=== PATIENT | female | born 1995 | race Caucasian/White ===

== ENCOUNTER 2024-02-06 08:27 | Emergency (ER) | payer OTHER ==
[2024-02-06] MEDS ORDERED: NA CHLORIDE 0.9% 1,000 ML ONE (08:59)
--- NOTE | 2024-02-06 09:43 | RAD REPORT ---
EXAM DESCRIPTION: US - Transvaginal OB - 02/06/2024 9:29 am CLINICAL HISTORY: VAGINAL BLEEDING COMPARISON: No comparisons FINDINGS: A normal size uterus is seen measuring 5.9 x 3.8 x 2.7 cm. Endometrium is thickened to 8 m m without IUP seen. Left ovary is normal in size, shape and echotexture with normal blood flow. The right ovary is obscur ed by bowel gas. No pelvic ascites. IMPRESSION: Mildly thickened endometrial stripe is seen without evidence of IUP. Right ovary was obscured by bowel gas. If the patient has a positive HCG level, this would be considered a of unknown location. F ollow-up serial HCG levels and pelvic sonography in 7-10 days would be recommended.
[2024-02-06 09:52] LABS: Absolute Basophils 0.1 K/uL (0-0.5); Absolute Eosinophils 0.1 K/uL (0-0.5); Absolute Lymphocytes (CBC) 1.8 K/uL (0.7-4.9); Absolute Monocytes 0.5 K/uL (0.1-1.3); Absolute Neutrophil 6.9 K/uL (1.8-8.0); Basophils % 0.7 % (0-1.3); Eosinophils % 1.5 % (0-4.4); Hematocrit 43.1 % (36.0-45.0); Hemoglobin 14.7 g/dL (12.0-15.0); Lymphocytes % 19.2 % (15.3-44.8); MCH 31.2 pg (27.0-35.0); MCHC 34.2 g/dL (32.0-36.0); MCV 91.3 fL (80-100); MPV 8.6 fL (7.6-11.3); Monocytes % 4.9 % (3.3-12.3); Neutrophils % 73.7 % (41.7-73.7); Platelets 241 thou/uL (152-406); RBC Red Blood Cell Count 4.72 M/uL (3.86-4.86); Red Cell Distribution Width 12.2 % (12.1-15.2)
[2024-02-06 10:11] LABS: Anion Gap 10.2 mEq/L (5.0-15.0); Potassium 3.2 mEq/L (3.5-5.1)
[2024-02-06] MEDS ORDERED: POTASSIUM CL SA 10 MEQ TAB PO ONE (10:48)
--- NOTE | 2024-02-06 10:50 | EDPHYS ---
Physician Documentation [facility] Name: Nina Hilliard Age: 28 yrs Sex: Female : 1995 Arrival Date: 02/06/2024 Time: 08:27 Bed 20 Private MD: ED Physician Ramón Bruce HPI: 02/05 08:40 This 28 yrs old Female presents to ER via Unassigned with complaints of Vaginal cp Bleeding, + Preg <12wks. 08:40 The patient presents to the emergency department with vaginal bleeding, that is cp moderate. The estimated gestational age is 5 weeks. course: care: none, Ultrasound: the patient has not had an ultrasound. 08:40 Associated signs and symptoms: Pertinent positives: vaginal bleeding, Pertinent cp negatives: abdominal pain, fever, vomiting. 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 - Infectious Disease History:: Denies. - Social history:: Smoking status: Patient denies any tobacco usage or history of. ROS: 08:45 Constitutional: Negative for body aches, chills, fever, poor PO intake, cp 08:45 Eyes: Negative for injury, pain, redness, and discharge, cp 08:45 Cardiovascular: Negative for chest pain, palpitations, 08:45 Respiratory: Negative for cough, shortness of breath, wheezing, 08:45 Abdomen/GI: Negative for abdominal pain, nausea, vomiting, and diarrhea, anorexia, 08:45 Back: Negative for pain at rest, pain with movement, 08:45 : Positive for vaginal bleeding, Negative for urinary symptoms, 08:45 Neuro: Negative for dizziness, headache, weakness, 08:45 All other systems are negative, Exam: 08:50 Constitutional: The patient appears in no acute distress, alert, awake, non-toxic, well cp developed, well nourished, 08:50 Head/Face: Normocephalic, atraumatic. cp 08:50 Eyes: Periorbital structures: appear normal, Conjunctiva: normal, no exudate, no injection, Sclera: no appreciated abnormality, Lids and lashes: appear normal, bilaterally, 08:50 ENT: External ear(s): are unremarkable, Nose: is normal, Mouth: Lips: moist, Oral mucosa: pink and intact, moist, Posterior pharynx: Airway: no evidence of obstruction, patent, 08:50 Chest/axilla: Inspection: normal, 08:50 Cardiovascular: Rate: tachycardic, Rhythm: regular, Edema: is not appreciated, JVD: is noted bilaterally, 08:50 Respiratory: the patient does not display signs of respiratory distress, Respirations: normal, no use of accessory muscles, no retractions, labored breathing, is not present, Breath sounds: are clear throughout, no decreased breath sounds, no stridor, no wheezing, 08:50 Abdomen/GI: Inspection: abdomen appears normal, Bowel sounds: active, all quadrants, Palpation: abdomen is soft and non-tender, in all quadrants, 08:50 Back: pain, is absent, ROM is normal, Vital Signs: 08:38 BP 114 / 88; Pulse 100; Resp 17; Temp 97.6; Pulse Ox 100% on R/A; Weight 52.62 kg; ll1 Height 5 ft. 1 in. ; Pain 1/10; 10:00 BP 112 / 78; Pulse 91; Resp 18; Temp 98; Pulse Ox 99% on R/A; ph 08:38 Body Mass Index 21.92 (52.62 kg, 154.94 cm) ll1 08:38 Pain Scale: Adult ll1 MDM: 08:37 Patient medically screened. cp 09:00 Differential diagnosis: STD, threatened Ab, inevitable Ab, complete Ab, retained Ab, cp ectopic . 10:50 Data reviewed: vital signs, nurses notes, lab test result(s), radiologic studies, cp ultrasound, and as a result, I will discharge patient. 10:50 Counseling: I had a detailed discussion with the patient and/or guardian regarding the cp historical points, exam findings, and any diagnostic results supporting the discharge/admit diagnosis, lab results, radiology results, the need for outpatient follow up, an OB/Gyne specialist, to return to the emergency department if symptoms worsen or persist or if there are any questions or concerns that arise at home. 02/05 08:39 Order name: Abo/rh Typing; Complete Time: 10:27 02/05 10:37 Interpretation: Reviewed. 02/05 08:39 Order name: Basic Metabolic Panel; Complete Time: 10:27 cp 02/05 10:27 Interpretation: Normal except: K 3.2; GLUC 107. 02/05 08:39 Order name: CBC with Diff; Complete Time: 10:06 cp 02/05 10:06 Interpretation: Reviewed. 02/05 08:39 Order name: Test, Urine 02/05 08:39 Order name: Quantitative Hcg; Complete Time: 10:27 02/05 10:28 Interpretation: HCGQ 35; Reviewed. 02/05 08:39 Order name: Urinalysis w/ reflexes 02/05 08:39 Order name: US Transvaginal Ob; Complete Time: 09:45 cp 02/05 09:46 Interpretation: Report reviewed. 02/05 08:39 Order name: IV Saline Lock; Complete Time: 09:45 cp 02/05 08:39 Order name: Labs collected and sent; Complete Time: 09:45 02/05 08:39 Order name: NPO; Complete Time: 09:45 cp Administered Medications: 09:45 Drug: NS 0.9% IV 1000 ml IV at 1 bolus Per protocol; 1000 mL bolus Route: IV; Rate: 1 ph bolus; Site: right antecubital; 10:51 Follow up: Response: No adverse reaction; IV Status: Completed infusion mb9 10:51 Drug: Potassium PO Effervescent Tablet 50 mEq PO once; dissolve in 4 ounces of water or mb9 juice Route: PO; Disposition: 16:13 Co-signature as Attending Physician, Ramón Bruce MD I reviewed the patient's care rn provided by the Advanced Practice Provider and agree with the diagnosis and treatment plan. Disposition Summary: 02/06/24 10:50 Discharge Ordered Notes: Location: Home cp Problem: new cp Symptoms: have improved cp Condition: Stable cp Diagnosis - Threatened cp Followup: cp - With: Private Physician - When: 48 Hours - Reason: Repeat Beta-HCG (48 Hours) Discharge Instructions: - Discharge Summary Sheet cp - Care cp - Threatened Miscarriage cp - Vaginal Bleeding During , First Trimester cp - First Trimester of cp Forms: - Medication Reconciliation Form cp - Antibiotic Education cp - Prescription Opioid Use cp - Patient Portal Instructions cp - Leadership Thank You Letter cp Prescriptions: - 114-iron a-g-folate 1 20 mg iron- 1 mg Oral tablet - take 1 tablet ORAL route daily; 30 tablet; Refills: 0, Product Selection cp Permitted Signatures: Dispatcher [employer] EDMS Ramón Bruce MD MD rn Hall, Patricia RN RN ph Carie, Dick, PENG PA cp Anish Mccormack RN RN ll1 Caterina Oleary RN RN mb9 Corrections: (The following items were deleted from the chart) 08:40 08:40 ABO/RH TYPING+BB.LAB.BRZ ordered. EDMS EDMS 08:40 08:40 BASIC METABOLIC PANEL+C.LAB.BRZ ordered. EDMS EDMS 08:40 08:40 CBC+H.LAB.BRZ ordered. EDMS EDMS 08:40 08:40 Test, Urine+UC.LAB.BRZ ordered. EDMS EDMS 08:40 08:40 QUANTITATIVE HCG+C.LAB.BRZ ordered. EDMS EDMS 08:40 08:40 Urinalysis+U.LAB.BRZ ordered. EDMS EDMS 08:40 08:40 Transvaginal Ob+US.RAD.BRZ ordered. EDMS EDMS
--- NOTE | 2024-02-06 10:50 | ER ---
Nurse's Notes [facility] Name: Nina Hilliard Age: 28 yrs Sex: Female : 1995 Arrival Date: 02/06/2024 Time: 08:27 Bed 20 Private MD: Diagnosis: Threatened Presentation: 02/05 08:38 Chief complaint: Patient states: Vaginal bleeding began yesterday "like a period", no ll1 clots. Slight cramping. G1, P0. States 5 weeks . Coronavirus screen: Client denies travel out of the [place] in the last 14 days. At this time, the client does not indicate any symptoms associated with coronavirus-19. Ebola Screen: Patient denies travel to an Ebola-affected area in the 21 days before illness onset. Initial Sepsis Screen: Does the patient meet any 2 criteria? No. Patient's initial sepsis screen is negative. Does the patient have a suspected source of infection? No. Patient's initial sepsis screen is negative. Risk Assessment: Do you want to hurt yourself or someone else? Patient reports no desire to harm self or others. Onset of symptoms was February 05, 2024. 08:38 Method Of Arrival: Ambulatory ll1 08:38 Acuity: YAMILE 3 ll1 Triage Assessment: 08:40 General: Appears uncomfortable, Behavior is cooperative, appropriate for age, crying. ll1 Pain: Complains of pain in pelvis Pain currently is 1 out of 10 on a pain scale. Quality of pain is described as aching, crampy, Pain began 1 day ago. : Reports cramping, vaginal bleeding that is moderate flow, about 5 weeks G1, P0. 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 - Infectious Disease History:: Denies. - Social history:: Smoking status: Patient denies any tobacco usage or history of. Screenin:46 [facility] ED Fall Risk Assessment (Adult) History of falling in the last 3 months, ph including since admission No falls in past 3 months (0 pts) Confusion or Disorientation No (0 pts) Intoxicated or Sedated No (0 pts) Impaired Gait No (0 pts) Mobility Assist Device Used No (0 pt) Altered Elimination No (0 pt) Score/Fall Risk Level 0 - 2 = Low Risk Oriented to surroundings, Maintained a safe environment, Hourly rounding (assess needs \\T\\ fall precautionary measures) done. Abuse screen: Denies threats or abuse. Denies injuries from another. Nutritional screening: No deficits noted. Tuberculosis screening: No symptoms or risk factors identified. Assessment: 10:56 Reassessment: No changes from previously documented assessment. Patient and/or family mb9 updated on plan of care and expected duration. Pain level reassessed. Patient is alert, oriented x 3, equal unlabored respirations, skin warm/dry/pink. Vital Signs: 08:38 BP 114 / 88; Pulse 100; Resp 17; Temp 97.6; Pulse Ox 100% on R/A; Weight 52.62 kg; ll1 Height 5 ft. 1 in. ; Pain 1/10; 10:00 BP 112 / 78; Pulse 91; Resp 18; Temp 98; Pulse Ox 99% on R/A; ph 08:38 Body Mass Index 21.92 (52.62 kg, 154.94 cm) ll1 08:38 Pain Scale: Adult ll1 ED Course: 08:31 Patient arrived in ED. im 08:33 Arm band placed on Patient placed in an exam room, on a stretcher. ll1 08:34 Helen Handley, RAMU is Primary Nurse. ph 08:37 Dick Darnell PA is PHCP. cp 08:37 Ramón Bruce MD is Attending Physician. cp 08:40 Triage completed. ll1 09:28 US Transvaginal Ob In Process Unspecified. EDMS 09:45 Abo/rh Typing Sent. ph 09:45 Basic Metabolic Panel Sent. ph 09:45 CBC with Diff Sent. ph 09:45 Quantitative Hcg Sent. ph 09:45 Initial lab(s) drawn, by oh, sent to lab. Inserted saline lock: 20 gauge in right ph antecubital area, using aseptic technique. Blood collected. 09:47 Patient has correct armband on for positive identification. Placed in gown. Bed in low ph position. Call light in reach. Side rails up X 1. 10:47 Urine collected: clean catch specimen, clear, Amount Voided: 150mL. ll1 10:56 No provider procedures requiring assistance completed. IV discontinued, intact, mb9 bleeding controlled, No redness/swelling at site. Pressure dressing applied. Administered Medications: 09:45 Drug: NS 0.9% IV 1000 ml IV at 1 bolus Per protocol; 1000 mL bolus Route: IV; Rate: 1 ph bolus; Site: right antecubital; 10:51 Follow up: Response: No adverse reaction; IV Status: Completed infusion mb9 10:51 Drug: Potassium PO Effervescent Tablet 50 mEq PO once; dissolve in 4 ounces of water or mb9 juice Route: PO; Medication: 09:46 VIS not applicable for this client. ph Outcome: 10:50 Discharge ordered by MD. an 10:56 Discharged to home ambulatory, mb9 10:56 Condition: stable 10:56 Discharge instructions given to patient, Instructed on discharge instructions, follow up and referral plans. Demonstrated understanding of instructions, follow-up care, medications, Prescriptions given X 1, 10:56 Patient left the ED. mb9 Signatures: Dispatcher [employer] EDHelen Watson RN RN Dick Akers PA PA cp Lewis, Lynsay, RN RN ll1 Caterina Oleary RN RN mb9 Lise Mendoza
[2024-02-06 11:11] LABS: Specific Gravity 1.002 (1.005-1.030); Specific Gravity < 1.005 (1.005-1.030); Sqamous Epithelial <5 /HPF (None Seen); Urine Bacteria None Seen /HPF (<20); Urine Bilirubin NEGATIVE (Negative); Urine Blood 3+ (OVER) (Negative); Urine Clarity Turbid (Clear); Urine Color Colorless (Yellow); Urine Crystals Unidentified Few /HPF (None Seen); Urine Culture Reflex Order NOT NEEDED; Urine Glucose NEGATIVE (Negative); Urine Ketones 1+ (Negative); Urine Microscopic Reflex YN ORDER UMIC; Urine Nitrite NEGATIVE (Negative); Urine Protein NEGATIVE (Negative); Urine RBC <5 /HPF (None Seen); Urine Urobilinogen Normal (Normal); Urine WBC <5 /HPF (<5); Urine pH 5.5 (5.0-7.0)
[2024-02-06 11:52] VITALS: BP 114/88; TEMP 97.6; O2SAT 100
== END 2024-02-06 10:56 | disposition home or self-care (01) ==
LOC: ER 08:27
DX: O20.0 Threatened abortion (principal)
CPT/HCPCS: 85025; 81001; 80048; 36415; 86900; 81025; 86901; 84702; 76817; J7030; 96360; 99284

== ENCOUNTER 2024-02-08 09:53 | Emergency (ER) | payer OTHER ==
[2024-02-08 11:55] VITALS: BP 115/80; TEMP 98.9; O2SAT 100
--- NOTE | 2024-02-08 15:06 | EDPHYS ---
Physician Documentation [facility] Name: Nina Hilliard Age: 28 yrs Sex: Female : 1995 Arrival Date: 02/08/2024 Time: 09:53 Bed 11 Private MD: ED Physician Reinaldo Resendiz HPI: 02/07 10:25 This 28 yrs old Female presents to ER via Ambulatory with complaints of Repeat Lab Work.sp3 10:25 28-year-old female with history of migraines currently G1, P0 with LMP 12/29 presents sp3 for repeat beta-hCG after a visit 2 days ago for threatened AB with an hCG of 35 seen here at this facility. Patient has had mild spotting since then and reports no pain, syncope, near syncope, back pain, or any other signs or symptoms on ROS at this time.. 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 - Infectious Disease History:: Denies. - Social history:: Smoking status: Patient denies any tobacco usage or history of. ROS: 10:26 Constitutional: Negative for fever, chills, and weight loss, Eyes: Negative for injury, sp3 pain, redness, and discharge, ENT: Negative for injury, pain, and discharge, Neck: Negative for injury, pain, and swelling, Cardiovascular: Negative for chest pain, palpitations, and edema, Respiratory: Negative for shortness of breath, cough, wheezing, and pleuritic chest pain, Abdomen/GI: Negative for abdominal pain, nausea, vomiting, diarrhea, and constipation, Back: Negative for injury and pain, MS/Extremity: Negative for injury and deformity, Skin: Negative for injury, rash, and discoloration, Neuro: Negative for headache, weakness, numbness, tingling, and seizure, Allergy/Immunology: Negative for hives, rash, and allergies, Endocrine: Negative for neck swelling, polydipsia, polyuria, polyphagia, and marked weight changes, Hematologic/Lymphatic: Negative for swollen nodes, abnormal bleeding, and unusual bruising, 10:26 All other systems are negative, Exam: 10:26 Constitutional: This is a well developed, well nourished patient who is awake, alert, sp3 and in no acute distress. Head/Face: Normocephalic, atraumatic. Chest/axilla: Normal chest wall appearance and motion. Nontender with no deformity. No lesions are appreciated. Cardiovascular: Regular rate and rhythm with a normal S1 and S2. No gallops, murmurs, or rubs. Normal PMI, no JVD. No pulse deficits. Respiratory: Lungs have equal breath sounds bilaterally, clear to auscultation and percussion. No rales, rhonchi or wheezes noted. No increased work of breathing, no retractions or nasal flaring. Abdomen/GI: Soft, non-tender, with normal bowel sounds. No distension or tympany. No guarding or rebound. No evidence of tenderness throughout. Back: No spinal tenderness. No costovertebral tenderness. Full range of motion. Skin: Warm, dry with normal turgor. Normal color with no rashes, no lesions, and no evidence of cellulitis. Vital Signs: 10:12 BP 115 / 80; Pulse 88; Resp 18; Temp 98.9; Pulse Ox 100% ; Weight 52.62 kg; Height 5 ss ft. 1 in. ; Pain 0/10; 10:12 Body Mass Index 21.92 (52.62 kg, 154.94 cm) ss 10:12 Pain Scale: Adult ss MDM: 10:04 Patient medically screened. sp3 10:27 Data reviewed: vital signs, nurses notes, lab test result(s). ED course: 28-year-old sp3 female with threatened AB here for repeat blood work after 48 hours for beta-hCG. Lab work is pending. Differential diagnosis includes versus continued threatened AB versus miscarriage in process. Patient's blood type is O+. Disposition pending workup and patient course with probable discharge and [facility] follow-up. Vital signs are normal and patient is in no acute distress.. 11:21 ED course: hCG at 19. Patient has had a miscarriage and I will inform her as well as sp3 ensure that she follows up with gynecology.. 02/07 10:04 Order name: HCG-Quantitative; Complete Time: 11:20 sp3 Administered Medications: No medications were administered Disposition Summary: 02/08/24 11:21 Discharge Ordered Notes: Location: Home sp3 Condition: Stable sp3 Diagnosis - Complete or unspecified spontaneous without complication sp3 Followup: sp3 - With: Private Physician - When: Upon discharge from the Emergency Department - Reason: Continuance of care Discharge Instructions: - Discharge Summary Sheet sp3 - Miscarriage sp3 Forms: - Medication Reconciliation Form sp3 - Antibiotic Education sp3 - Prescription Opioid Use sp3 - Patient Portal Instructions sp3 - Leadership Thank You Letter sp3 Signatures: Dispatcher [employer] Aleksandra Crow RN RN ss Reinaldo Resendiz MD MD sp3 Corrections: (The following items were deleted from the chart) 10:04 10:04 QUANTITATIVE HCG+C.LAB.BRZ ordered. KURTIS HULL
--- NOTE | 2024-02-08 15:06 | ER ---
Nurse's Notes [facility] Name: Nina Hilliard Age: 28 yrs Sex: Female : 1995 Arrival Date: 02/08/2024 Time: 09:53 Bed 11 Private MD: Diagnosis: Complete or unspecified spontaneous without complication Presentation: 02/07 10:12 Chief complaint: Patient states: Pt was seen in this ER on Tuesday with vaginal bleeding ss and cramping, possible miscarriage. Was instructed to return today for repeat Hcg. , LMP 12/30/2023. Coronavirus screen: Vaccine status: Patient reports being unvaccinated. Client denies travel out of the [place] in the last 14 days. Ebola Screen: Patient negative for fever greater than or equal to 101.5 degrees Fahrenheit, and additional compatible Ebola Virus Disease symptoms Patient denies exposure to infectious person. Patient denies travel to an Ebola-affected area in the 21 days before illness onset. Initial Sepsis Screen: Does the patient meet any 2 criteria? No. Patient's initial sepsis screen is negative. Does the patient have a suspected source of infection? No. Patient's initial sepsis screen is negative. Risk Assessment: Do you want to hurt yourself or someone else? Patient reports no desire to harm self or others. Onset of symptoms was February 05, 2024. 10:12 Method Of Arrival: Ambulatory ss 10:12 Acuity: YAMILE 4 ss Triage Assessment: 10:15 General: Appears in no apparent distress. comfortable, Behavior is calm, cooperative. ss Pain: Denies pain. : Reports vaginal bleeding that is spotty, since Tuesday-diagnosed with possible miscarriage. 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 - Infectious Disease History:: Denies. - Social history:: Smoking status: Patient denies any tobacco usage or history of. Screenin:25 [facility] ED Fall Risk Assessment (Adult) History of falling in the last 3 months, ss including since admission No falls in past 3 months (0 pts) Confusion or Disorientation No (0 pts) Intoxicated or Sedated No (0 pts) Impaired Gait No (0 pts) Mobility Assist Device Used No (0 pt) Altered Elimination No (0 pt) Score/Fall Risk Level 0 - 2 = Low Risk Oriented to surroundings, Maintained a safe environment. Abuse screen: Denies threats or abuse. Denies injuries from another. Nutritional screening: No deficits noted. Tuberculosis screening: Never had TB. Assessment: 11:25 General: Appears in no apparent distress. comfortable, Behavior is calm, cooperative. ss Neuro: Level of Consciousness is awake, alert, obeys commands, Oriented to person, place, time, situation. Respiratory: Airway is patent Respiratory effort is even, unlabored, Respiratory pattern is regular, symmetrical. Derm: Skin is pink, warm \T\ dry. normal. Vital Signs: 10:12 BP 115 / 80; Pulse 88; Resp 18; Temp 98.9; Pulse Ox 100% ; Weight 52.62 kg; Height 5 ss ft. 1 in. ; Pain 0/10; 10:12 Body Mass Index 21.92 (52.62 kg, 154.94 cm) ss 10:12 Pain Scale: Adult ss ED Course: 09:55 Patient arrived in ED. rg4 09:59 Reinaldo Resendiz MD is Attending Physician. sp3 10:13 Triage completed. ss 10:15 Arm band placed on right wrist. Patient placed in an exam room. ss 11:25 Patient has correct armband on for positive identification. ss 11:26 Aleksandra Alfonso RN is Primary Nurse. ss 11:29 No provider procedures requiring assistance completed. Patient did not have IV access ss during this emergency room visit. Administered Medications: No medications were administered Medication: 11:25 VIS not applicable for this client. ss Outcome: 11:21 Discharge ordered by . sp3 11:29 Discharged to home ambulatory, with family, ss 11:29 Condition: good 11:29 Discharge instructions given to patient, Instructed on discharge instructions, follow up and referral plans. Demonstrated understanding of instructions, follow-up care, 11:29 Patient left the ED. ss Signatures: Aleksandra Alfonso RN RN Aga Macrh rg4 Reinaldo Resendiz MD MD sp3 Corrections: (The following items were deleted from the chart) 10:17 10:12 Chief complaint: Patient states: Pt was seen in this ER on Tuesday with vaginal ss bleeding and cramping, possible miscarriage. Was instructed to return today for repeat HcG ss
== END 2024-02-08 11:29 | disposition home or self-care (01) ==
LOC: ER 09:53
DX: O03.9 Complete or unspecified spontaneous abortion without complication (principal)
CPT/HCPCS: 36415; 84702

== ENCOUNTER 2024-10-28 00:17 | Emergency (ER) | payer OTHER ==
[2024-10-28 01:35] LABS: Absolute Lymphocytes (CBC) 0.9 K/uL (0.7-4.9); Absolute Monocytes 0.4 K/uL (0.1-1.3); Absolute Neutrophil 14.6 K/uL (1.8-8.0); Basophils % 0.1 % (0-1.3); Eosinophils % 0.1 % (0-4.4); Hematocrit 36.2 % (36.0-45.0); Hemoglobin 12.6 g/dL (12.0-15.0); Lymphocytes % 5.9 % (15.3-44.8); MCH 31.2 pg (27.0-35.0); MCHC 34.7 g/dL (32.0-36.0); MCV 89.9 fL (80-100); MPV 9.4 fL (7.6-11.3); Monocytes % 2.7 % (3.3-12.3); Neutrophils % 91.2 % (41.7-73.7); Platelets 203 thou/uL (152-406); RBC Red Blood Cell Count 4.03 M/uL (3.86-4.86); Red Cell Distribution Width 12.8 % (12.1-15.2)
[2024-10-28 01:41] LABS: Anion Gap 11.6 mEq/L (5.0-15.0); Potassium 3.6 mEq/L (3.5-5.1)
[2024-10-28 03:34] LABS: Band Neutrophils 6 % (0-1); Differential Total Cells Count 100; Lymphocytes 6 % (15-42); Monocytes 0 % (0-10); Segmented Neutrophils 88 % (40-80)
[2024-10-28 03:35] LABS: Blood Morphology Comment NOT SEEN (NOT SEEN); Platelet Estimate ADEQ
[2024-10-28] MEDS ORDERED: NA CHLORIDE 0.9% 1,000 ML ONE (03:37)
[2024-10-28 04:01] LABS: Specific Gravity 1.025 (1.005-1.030)
[2024-10-28 04:02] LABS: Specific Gravity 1.025 (1.005-1.030); Sqamous Epithelial None Seen /HPF (None Seen); Urine Bacteria <20 /HPF (<20); Urine Bilirubin NEGATIVE (Negative); Urine Blood 3+ (OVER) (Negative); Urine Clarity Extremely Turbid (Clear); Urine Color Brown (Yellow); Urine Culture Reflex Order REFLEXED; Urine Glucose NEGATIVE (Negative); Urine Ketones NEGATIVE (Negative); Urine Microscopic Reflex YN ORDER UMIC; Urine Mucus Slight /HPF (None Seen); Urine Nitrite NEGATIVE (Negative); Urine Protein 1+ (Negative); Urine RBC >50 /HPF (None Seen); Urine Urobilinogen Normal (Normal); Urine WBC >50 /HPF (<5); Urine pH 5.5 (5.0-7.0)
[2024-10-28] MEDS ORDERED: ONDANSETRON 4 MG/2 ML VIAL ONE (04:13)
[2024-10-28] MEDS ORDERED: MORPHINE 4 MG/ML SYR ONE (04:14)
--- NOTE | 2024-10-28 04:37 | RAD REPORT ---
EXAM DESCRIPTION: Transvaginal OB CLINICAL HISTORY: 29 years Female, VAGINAL BLEEDING COMPARISON: None. TECHNIQUE: Transvaginal images of the pelvis obtained FINDINGS: Uterus: Anteverted, measuring 9.9 x 4.1 x 4.5 cm. No focal myometrial mass identified. Gestational sac/Yolk sac/ pole: IUP is not identified. Endometrium is thickened and diffusely he terogeneous with areas of complex fluid. Findings are suspicious for blood products. No central internal vascularity on color Doppler images. Cannot exclude normally shaped gestational sac superior ly, though this could also be due to blood products. Right ovary: Not visualized. Left ovary: Measures 2.4 x 2.2 x 1.3 cm. No suspicious sonographic abnormality. Small corpus luteal c yst. Adnexa: No additional abnormality. Free fluid: None identified. IMPRESSION: No intrauterine is definitively identified. Endometrium is thickened and diffusely heteroge neous, suspicious for blood products. Cannot exclude an abnormally shaped gestational sac, though this could also be due to hematoma. No extra ovarian adnexal mass identified to suggest ectopic pregn courtney. Recommend continued close clinical follow-up with repeat ultrasound as indicated. Electronically signed by: Leatha Casillas MD 10/28/2024 04:32 AM CDT Due to temporary technical issues with the PACS/[employer] reporting system, reports are being sign ed by the in-house radiologist without review as a courtesy to ensure prompt reporting the interpreting rad iologist is fully responsible for the content of the report. Transcribed Date/Time: 10/28/2024 4:37 AM
[2024-10-28] MEDS ORDERED: NA CHLORIDE 0.9% 100 ML ONE (04:54)
[2024-10-28] MEDS ORDERED: PIPERACIL/TAZO 3.375 GM VIAL IV ONE (04:54)
--- NOTE | 2024-10-28 05:23 | ER ---
Nurse's Notes [facility] Name: Nina Hilliard Age: 29 yrs Sex: Female : 1995 Arrival Date: 10/28/2024 Time: 00:17 Bed 13 Private MD: Diagnosis: Incomplete spontaneous Presentation: 10/28 00:41 Chief complaint: Patient states: 9 WEEKS VAGINAL BLEEDING SINCE TUESDAY. ha1 00:41 Coronavirus screen: Client denies travel out of the [place] in the last 14 days. Ebola ha1 Screen: No symptoms or risks identified at this time. Initial Sepsis Screen: Does the patient meet any 2 criteria? No. Patient's initial sepsis screen is negative. Does the patient have a suspected source of infection? No. Patient's initial sepsis screen is negative. Risk Assessment: Do you want to hurt yourself or someone else? Patient reports no desire to harm self or others. Onset of symptoms was October 28, 2024. 00:41 Method Of Arrival: Wheelchair ha1 00:41 Acuity: YAMILE 3 ha1 Historical: - Allergies: 00:41 Azithromycin; ha1 00:41 shrimp; ha1 00:41 Wheat/glutens; ha1 - PMHx: 00:41 Migraine; ha1 - Immunization history:: Adult Immunizations up to date. - Infectious Disease History:: Denies. - Social history:: Smoking status: Patient denies any tobacco usage or history of. - Family history:: not pertinent. Screenin:55 [facility] ED Fall Risk Assessment (Adult) History of falling in the last 3 months, rg5 including since admission No falls in past 3 months (0 pts) Confusion or Disorientation No (0 pts) Intoxicated or Sedated No (0 pts) Impaired Gait No (0 pts) Mobility Assist Device Used No (0 pt) Altered Elimination No (0 pt) Score/Fall Risk Level 0 - 2 = Low Risk Oriented to surroundings, Maintained a safe environment, Hourly rounding (assess needs \T\ fall precautionary measures) done. Abuse screen: Denies threats or abuse. Nutritional screening: No deficits noted. Tuberculosis screening: No symptoms or risk factors identified. Assessment: 00:45 Obstetrical Assessment: General assessment: awake and alert, anxious, skin warm and dry.rg5 00:45 General: Appears uncomfortable, Behavior is cooperative, appropriate for age, agitated. rg5 Pain: Complains of pain in back. Neuro: Level of Consciousness is awake, alert, obeys commands, Oriented to person, place, time, situation. Cardiovascular: Denies chest pain, Patient's skin is warm and dry. Respiratory: Airway is patent Trachea midline Respiratory effort is even, unlabored, Respiratory pattern is regular, symmetrical. GI: Abdomen is round. : Reports vaginal bleeding that is bright red, moderate flow. EENT: No deficits noted. Derm: Skin is intact, Skin is dry, Skin is normal, Skin temperature is warm. Musculoskeletal: Circulation, motion, and sensation intact. Range of motion: intact in all extremities. 01:30 Reassessment: No changes from previously documented assessment. Patient and/or family rg5 updated on plan of care and expected duration. Pain level reassessed. Patient is alert, oriented x 3, equal unlabored respirations, skin warm/dry/pink. 03:00 Reassessment: No changes from previously documented assessment. Patient and/or family rg5 updated on plan of care and expected duration. Pain level reassessed. Patient is alert, oriented x 3, equal unlabored respirations, skin warm/dry/pink. 04:00 Reassessment: No changes from previously documented assessment. Patient and/or family rg5 updated on plan of care and expected duration. Pain level reassessed. Patient is alert, oriented x 3, equal unlabored respirations, skin warm/dry/pink. 05:40 Reassessment: No changes from previously documented assessment. Patient and/or family rg5 updated on plan of care and expected duration. Pain level reassessed. Patient is alert, oriented x 3, equal unlabored respirations, skin warm/dry/pink. Vital Signs: 00:41 BP 109 / 76; Pulse 83; Resp 17 S; Temp 98.4(O); Pulse Ox 100% on R/A; Weight 52.16 kg; ha1 Height 5 ft. 0 in. ; 01:00 BP 98 / 66; Pulse 82; Resp 18; Pulse Ox 98% on R/A; Pain 7/10; rg5 03:00 BP 100 / 58; Pulse 87; Resp 18; Pulse Ox 99% on R/A; Pain 8/10; rg5 04:20 BP 111 / 71; Pulse 87; Resp 18; Pulse Ox 99% on R/A; Pain 9/10; rg5 05:40 BP 97 / 71; Pulse 80; Resp 17; Pulse Ox 96% on R/A; Pain 10/10; rg5 00:41 Body Mass Index 22.46 (52.16 kg, 152.4 cm) ha1 01:00 Pain Scale: Adult rg5 03:00 Pain Scale: Adult rg5 04:20 Pain Scale: Adult rg5 05:40 Pain Scale: Adult rg5 ED Course: 00:18 Patient arrived in ED. im 00:19 Cole Villalta MD is Attending Physician. rt 00:43 Ashkan Fonseca, RAMU is Primary Nurse. rg5 00:55 Triage completed. ha1 00:55 No provider procedures requiring assistance completed. Inserted saline lock: 20 gauge rg5 in right antecubital area, using aseptic technique. Blood collected. Flushed with 10 mL NS. 00:55 Patient has correct armband on for positive identification. Bed in low position. Call rg5 light in reach. Side rails up X 1. Door closed. Noise minimized. Warm blanket given. 01:43 US Transvaginal Ob In Process Unspecified. EDMS 04:05 EKG done, by ultrasound technologist sonographer. af3 05:48 initiated transfer with [facility] spoke with eva \Bernabe\[id number]. vk 05:55 [facility] advised at this time they would be declining the transfer. vk 06:02 IV discontinued, bleeding controlled, No redness/swelling at site. Pressure dressing rg5 applied. 06:03 Provided Education on: post er care. rg5 Administered Medications: 03:45 Drug: NS 0.9% IV 1000 ml IV at 1 bolus Per protocol; to be given as a bolus over 60 rg5 minutes Route: IV; Rate: 1 bolus; Site: right antecubital; 04:00 Follow up: IV Status: Completed infusion; IV Intake: 1000ml rg5 04:17 Drug: morphine IVP or IV 4 mg IVP once over 4 mins Route: IVP; Infused Over: 4 mins; rg5 Site: right antecubital; 04:51 Follow up: Response: No adverse reaction; Pain is decreased rg5 04:17 Drug: Ondansetron IVP 4 mg IVP once; over 2 minutes Route: IVP; Site: right antecubital;rg5 04:50 Follow up: Response: No adverse reaction rg5 04:56 Drug: Piperacillin-Tazobactam IVPB 3.375 grams IVPB once over 60 mins; (mix in NS 100 rg5 mL) Route: IVPB; Infused Over: 60 mins; Site: right antecubital; 06:01 Follow up: IV Status: Completed infusion; IV Intake: 100ml rg5 05:39 Drug: Ketorolac IVP 15 mg IVP once Route: IVP; Site: right antecubital; rg5 06:01 Follow up: Response: No adverse reaction; Pain is decreased rg5 05:39 Drug: morphine IVP or IV 2 mg IVP once over 4 mins Route: IVP; Infused Over: 4 mins; rg5 Site: right antecubital; 06:01 Follow up: Response: No adverse reaction; Pain is decreased rg5 05:54 Drug: morphine IVP or IV 2 mg IVP once over 4 mins Route: IVP; Infused Over: 4 mins; rg5 Site: right antecubital; 06:02 Follow up: Response: No adverse reaction; Pain is decreased rg5 Medication: 00:55 VIS not applicable for this client. rg5 Intake: 04:00 IV: 1000ml; Total: 1000ml. rg5 06:01 IV: 100ml; Total: 1100ml. rg5 Outcome: 05:22 ER care complete, transfer ordered by MD. rt 05:49 Discharge ordered by MD. rt 06:02 Discharged to home via wheelchair, rg5 06:02 Condition: stable 06:02 Discharge instructions given to patient, Instructed on discharge instructions, follow up and referral plans. Demonstrated understanding of instructions, follow-up care, medications, Prescriptions given X 1, 06:03 Patient left the ED. rg5 Signatures: Dispatcher [employer] EDMS Nadia Chairez RN RN ha1 Cole Villalta MD MD rt Lise Mendoza Vivian vk Gallardo, Rommel, RN RN rg5 Yennifer Le3
--- NOTE | 2024-10-28 05:24 | EDPHYS ---
Physician Documentation [facility] Name: Nina Hilliard Age: 29 yrs Sex: Female : 1995 Arrival Date: 10/28/2024 Time: 00:17 Bed 13 Private MD: ED Physician Cole Villalta HPI: 10/28 04:52 This 29 yrs old Female presents to ER via Wheelchair with complaints of Vaginal rt Bleeding, + Preg <12wks. 04:52 Patient is a G4, P0 currently 9 weeks gestation who presents to the ED with vaginal rt bleeding, lower abdominal pain. The patient reports that she was taking progesterone for this , however, growth had stopped that about 6 weeks and she had subsequently stopped taking the progesterone. States that that bleeding started tonight, reports clot passage. Denies other acute complaints at this time, symptoms are moderate in severity, no other aggravating or elevating factors.. Historical: - Allergies: 00:41 Azithromycin; ha1 00:41 shrimp; ha1 00:41 Wheat/glutens; ha1 - PMHx: 00:41 Migraine; ha1 - Immunization history:: Adult Immunizations up to date. - Infectious Disease History:: Denies. - Social history:: Smoking status: Patient denies any tobacco usage or history of. - Family history:: not pertinent. ROS: 04:52 Constitutional: Negative for fever, chills, and weight loss, MS/Extremity: Negative for rt injury and deformity, Skin: Negative for injury, rash, and discoloration, Neuro: Negative for headache, weakness, numbness, tingling, and seizure, 04:52 Abdomen/GI: Positive for abdominal pain, Negative for nausea and vomiting, 04:52 : Positive for vaginal bleeding, Negative for urinary symptoms, Exam: 04:52 Constitutional: This is a well developed, well nourished patient who is awake, alert, rt and in no acute distress. Chest/axilla: Normal chest wall appearance and motion. Nontender with no deformity. No lesions are appreciated. Cardiovascular: Regular rate and rhythm with a normal S1 and S2. No gallops, murmurs, or rubs. Normal PMI, no JVD. No pulse deficits. Respiratory: Lungs have equal breath sounds bilaterally, clear to auscultation and percussion. No rales, rhonchi or wheezes noted. No increased work of breathing, no retractions or nasal flaring. Skin: Warm, dry with normal turgor. Normal color with no rashes, no lesions, and no evidence of cellulitis. MS/ Extremity: Pulses equal, no cyanosis. Neurovascular intact. Full, normal range of motion. Neuro: Awake and alert, GCS 15, oriented to person, place, time, and situation. Cranial nerves II-XII grossly intact. Motor strength 5/5 in all extremities. Sensory grossly intact. Cerebellar exam normal. Normal gait. 04:52 ECG was reviewed by the Attending Physician. 04:52 Abdomen/GI: Tenderness to suprapubic region without rebound, guarding, distention, Vital Signs: 00:41 BP 109 / 76; Pulse 83; Resp 17 S; Temp 98.4(O); Pulse Ox 100% on R/A; Weight 52.16 kg; ha1 Height 5 ft. 0 in. ; 01:00 BP 98 / 66; Pulse 82; Resp 18; Pulse Ox 98% on R/A; Pain 7/10; rg5 03:00 BP 100 / 58; Pulse 87; Resp 18; Pulse Ox 99% on R/A; Pain 8/10; rg5 04:20 BP 111 / 71; Pulse 87; Resp 18; Pulse Ox 99% on R/A; Pain 9/10; rg5 05:40 BP 97 / 71; Pulse 80; Resp 17; Pulse Ox 96% on R/A; Pain 10/10; rg5 00:41 Body Mass Index 22.46 (52.16 kg, 152.4 cm) ha1 01:00 Pain Scale: Adult rg5 03:00 Pain Scale: Adult rg5 04:20 Pain Scale: Adult rg5 05:40 Pain Scale: Adult rg5 MDM: 00:43 Medical Screening Exam initiated rt 06:19 Differential diagnosis: Incomplete AB, missed AB, septic AB. Data reviewed: vital rt signs, nurses notes, lab test result(s), radiologic studies. Management of patient was discussed with the following: News Editor: Discussed with LINER ASSEMBLER at [facility], expressed my concerns for possible early septic , she states that without foul-smelling discharge, fever, unlikely, states that bandemia and leukocytosis is very common with spontaneous AB's. States that patient likely does not need be transferred. I discussed this with the patient instructed to follow-up with LINER ASSEMBLER, return precautions were discussed.. I considered the following discharge prescriptions or medication management in the emergency department Medications were administered in the Emergency Department. See MAR. 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 Counseling: I had a detailed discussion with the patient and/or guardian regarding the historical points, exam findings, and any diagnostic results supporting the discharge/admit diagnosis, lab results, radiology results, the need for outpatient follow up, to return to the emergency department if symptoms worsen or persist or if there are any questions or concerns that arise at home. 10/28 00:48 Order name: Basic Metabolic Panel; Complete Time: 05:11 rt 10/28 00:48 Order name: CBC with Diff; Complete Time: 04:11 rt 10/28 00:48 Order name: Test, Urine; Complete Time: 04:11 rt 10/28 00:48 Order name: Urinalysis w/ reflexes; Complete Time: 04:13 rt 10/28 01:48 Order name: Manual Differential; Complete Time: 04:11 EDMS 10/28 04:14 Order name: Urine Culture EDMS 10/28 04:36 Order name: HCG, Quantitative; Complete Time: 05:11 EDMS 10/28 00:48 Order name: US Transvaginal Ob rt 10/28 03:27 Order name: EKG; Complete Time: 03:27 rt 10/28 00:48 Order name: IV Saline Lock; Complete Time: 00:55 rt 10/28 00:48 Order name: Labs collected and sent; Complete Time: 00:55 rt 10/28 00:48 Order name: NPO; Complete Time: 00:55 rt 10/28 03:27 Order name: EKG - Nurse/Tech; Complete Time: 04:05 rt EC:52 Rate is 77 beats/min. Rhythm is regular, Normal Sinus Rhythm with No ectopy. QRS [place] rt is Normal. MA interval is normal. QRS interval is normal. QT interval is normal. No Q waves. T waves are Normal. No ST changes noted. Interpreted by me. Administered Medications: 03:45 Drug: NS 0.9% IV 1000 ml IV at 1 bolus Per protocol; to be given as a bolus over 60 rg5 minutes Route: IV; Rate: 1 bolus; Site: right antecubital; 04:00 Follow up: IV Status: Completed infusion; IV Intake: 1000ml rg5 04:17 Drug: morphine IVP or IV 4 mg IVP once over 4 mins Route: IVP; Infused Over: 4 mins; rg5 Site: right antecubital; 04:51 Follow up: Response: No adverse reaction; Pain is decreased rg5 04:17 Drug: Ondansetron IVP 4 mg IVP once; over 2 minutes Route: IVP; Site: right antecubital;rg5 04:50 Follow up: Response: No adverse reaction rg5 04:56 Drug: Piperacillin-Tazobactam IVPB 3.375 grams IVPB once over 60 mins; (mix in NS 100 rg5 mL) Route: IVPB; Infused Over: 60 mins; Site: right antecubital; 06:01 Follow up: IV Status: Completed infusion; IV Intake: 100ml rg5 05:39 Drug: Ketorolac IVP 15 mg IVP once Route: IVP; Site: right antecubital; rg5 06:01 Follow up: Response: No adverse reaction; Pain is decreased rg5 05:39 Drug: morphine IVP or IV 2 mg IVP once over 4 mins Route: IVP; Infused Over: 4 mins; rg5 Site: right antecubital; 06:01 Follow up: Response: No adverse reaction; Pain is decreased rg5 05:54 Drug: morphine IVP or IV 2 mg IVP once over 4 mins Route: IVP; Infused Over: 4 mins; rg5 Site: right antecubital; 06:02 Follow up: Response: No adverse reaction; Pain is decreased rg5 Disposition Summary: 10/28/24 05:49 Discharge Ordered Notes: Location: Home rt Problem: new(10/28/24 05:49) rt Symptoms: are unchanged(10/28/24 05:49) rt Condition: Stable(10/28/24 05:49) rt Diagnosis - Incomplete spontaneous rt Followup: rt - With: Private Physician - When: 1 - 2 days - Reason: Discharge Instructions: - Discharge Summary Sheet rt - Incomplete Miscarriage rt Forms: - Medication Reconciliation Form rt - Antibiotic Education rt - Prescription Opioid Use rt - Patient Portal Instructions rt - Leadership Thank You Letter rt Prescriptions: - Tramadol 50 mg Oral tablet - take 1 tablet ORAL route every 8 hours as needed; 15 tablet; Refills: 0, rt Product Selection Permitted Signatures: Dispatcher [employer] EDMS Nadia Chairez, RN RN ha1 Cole Villalta MD MD rt Ashkan Fonseca, RN RN rg5 Corrections: (The following items were deleted from the chart) 00:49 00:49 BASIC METABOLIC PANEL+C.LAB.BRZ ordered. EDMS EDMS 00:49 00:49 CBC+H.LAB.BRZ ordered. EDMS EDMS 00:49 00:49 Test, Urine+UC.LAB.BRZ ordered. EDMS EDMS 00:49 00:49 Urinalysis+U.LAB.BRZ ordered. EDMS EDMS 00:49 00:49 Transvaginal Ob+US.RAD.BRZ ordered. EDMS EDMS 04:35 04:26 QUANTITATIVE HCG+C.LAB.BRZ ordered. EDMS EDMS 05:48 05:22 Dr, rt rt 05:48 05:22 [facility] rt rt 05:48 05:22 Higher level of care rt rt 05:48 05:22 Fair rt rt 05:48 05:22 new rt rt 05:48 05:22 are unchanged rt rt 05:48 05:22 Incomplete rt rt 05:48 05:22 Leukocytosis rt rt 05:48 05:22 Bandemia rt rt
[2024-10-28] MEDS ORDERED: MORPHINE 2 MG/ML SYR ONE ×2 (05:29→05:47)
[2024-10-28] MEDS ORDERED: KETOROLAC 30 MG/ML INJ ONE (05:34)
[2024-10-28 06:09] VITALS: TEMP 98.4
[2024-10-28 06:14] VITALS: BP 97/71; O2SAT 96
--- NOTE | 2024-10-30 11:07 | EKG ---
Test Date: 2024-10-28 Test Time: 04:02:17 Airplane Flight Attendant: AF MEASUREMENT RESULTS: Intervals: Rate: 77 OK: 130 QRSD: 78 QT: 358 QTc: 405 [place]: P: 74 OK: 130 QRS: 70 T: 56 INTERPRETIVE STATEMENTS: Sinus rhythm with marked sinus arrhythmia Otherwise normal ECG No previous ECG available for comparison Electronically Signed On 10-30-24 11:00:38 CDT by Johnny Jhaveri
== END 2024-10-28 06:03 | disposition home or self-care (01) ==
LOC: ER 00:17
DX: O03.4 Incomplete spontaneous abortion without complication (principal)
CPT/HCPCS: 96365; 93005; 87088; 85025; 81001; 87086; 80048; 36415; 81025; 84702; 76817; 96375; 99284; J2543; J2270 ×2; J2405; J7030